=== PATIENT | female | born 1960 | race Hispanic/Latino ===

== ENCOUNTER 2017-02-16 15:01 | Outpatient (CLI) | payer MEDICARE ==
--- NOTE | 2017-02-17 14:57 | Mammography Report ---
BILATERAL DIGITAL SCREENING MAMMOGRAM with CAD : 02/16/17 15:01:00 CLINICAL: Routine screening. COMPARISON:11/05/15 FINDINGS: The breasts are heterogeneously dense, which may obscure small masses. No mass, architectural distortion or suspicious calcifications. IMPRESSION: No mammographic evidence of malignancy. BI-RADS CATEGORY: 2 -- Benign RECOMMENDATION: Routine mammographic screening in one year. COMMENT: Patient follow-up letters are generated by our [employer] application.
== END 2017-02-16 15:02 | disposition home or self-care (01) ==
LOC: SPVWC 15:01
PROVIDERS: ATTEND Obstetrics & Gynecology
DX: Z12.31 Encounter for screening mammogram for malignant neoplasm of breast (principal)
CPT/HCPCS: 77067; G0202

== ENCOUNTER 2018-06-01 14:57 | Outpatient (CLI) | payer MEDICARE ==
--- NOTE | 2018-06-01 16:25 | Mammography Report ---
BILATERAL DIGITAL SCREENING MAMMOGRAM with CAD : 06/01/18 14:57:00 CLINICAL: Routine screening. COMPARISON:02/16/17 and 11/05/15 FINDINGS: The breasts are heterogeneously dense, which may obscure small masses. No mass, architectural distortion or suspicious calcifications. IMPRESSION: No mammographic evidence of malignancy. BI-RADS CATEGORY: 2 -- Benign RECOMMENDATION: Routine mammographic screening in one year. COMMENT: Patient follow-up letters are generated by our [email or web address] application.
== END 2018-06-01 14:58 | disposition home or self-care (01) ==
LOC: SPVWC 14:57
PROVIDERS: ATTEND Obstetrics & Gynecology
DX: Z12.31 Encounter for screening mammogram for malignant neoplasm of breast (principal)
CPT/HCPCS: 77067